=== PATIENT | female | born 1995 | race Native Hawaiian/Other Pacific Islander ===

== ENCOUNTER 2016-09-03 22:00 | Emergency (ER) | payer OTHER ==
[~2016-09-03] VITALS: Ht 157.5 cm; Wt 62.6 kg
[2016-09-04 00:31] LABS: PLATELET COUNT 189 K/uL (152-353)
[2016-09-04 00:47] LABS: SODIUM 133 mmol/L (136-145)
[2016-09-04 01:52] VITALS: BP 108/52; TEMP 98.5
== END 2016-09-04 01:52 | disposition home or self-care (01) ==
LOC: ED 22:00
PROVIDERS: Emergency Medicine
DX: B34.9 Viral infection, unspecified (principal); J20.9 Acute bronchitis, unspecified; J01.80 Other acute sinusitis
CPT/HCPCS: 36415; 80053; 81000; 81025; 85027; 96361; 96374; 99284; J1885

== ENCOUNTER 2016-10-11 00:46 | Emergency (ER) | payer OTHER ==
[~2016-10-11] VITALS: Ht 157.5 cm; Wt 61.7 kg
[2016-10-11 02:43] VITALS: BP 145/82; TEMP 97.9
== END 2016-10-11 02:47 | disposition home or self-care (01) ==
LOC: ED 00:46
DX: G43.909 Migraine, unspecified, not intractable, without status migrainosus (principal)
CPT/HCPCS: 96360; 96374; 96375; 96376; 99283; J1100; J1200; J1885; J2405